=== PATIENT | female | born 1940 | race Caucasian/White ===

== ENCOUNTER → 2016-09-15 | Outpatient (CLI) | payer OTHER | LOC: BRMIMAGING 13:53 | PROVIDERS: ATTEND Family Medicine | DX: R91.8 Other nonspecific abnormal finding of lung field (principal); R05 Cough; R06.02 Shortness of breath | CPT/HCPCS: 71020-PO ==

== ENCOUNTER → 2016-10-18 | Outpatient (CLI) | payer OTHER | LOC: BRMIMAGING 09:37 | PROVIDERS: ATTEND Family Medicine | DX: J40 Bronchitis, not specified as acute or chronic (principal); R91.8 Other nonspecific abnormal finding of lung field | CPT/HCPCS: 71020-PO ==